=== PATIENT | male | born 1960 | race Hispanic/Latino ===

== ENCOUNTER 2018-10-01 21:48 | Inpatient (IN) | payer SELFPAY ==
[~2018-10-01] VITALS: Ht 170.2 cm; Wt 103.1 kg
[2018-10-01] MEDS ORDERED: ADENOSINE 6 MG/2 ML VIAL IV ONE ×4 (21:50→21:58)
[2018-10-01] MEDS ORDERED: MORPHINE SULFATE INJ 4 MG/ML INJ 1ML ONE (21:57)
[2018-10-01] MEDS ORDERED: ADENOSINE 6MG/2ML 2 ML ONE (21:58)
[2018-10-01] MEDS ORDERED: METOPROLOL TARTRATE INJ 1 MG/ML VIAL ONE (22:01)
[2018-10-01] MEDS ORDERED: METOPROLOL TARTRATE INJ 1 MG/ML VIAL IV ONE (22:02)
[2018-10-01] MEDS ORDERED: MORPHINE SULFATE 2 MG/ML SYR 1ML IV STA (22:04)
[2018-10-01] MEDS ORDERED: AMIODARONE 900MG 500 ML IV ONE ×2 (22:26→23:00)
[2018-10-01] MEDS ORDERED: AMIODARONE HCL 150MG 100 ML ONE (22:26)
[2018-10-01] MEDS ORDERED: AMIODARONE HCL 150 MG/100 ML BAG IV ONE (22:30)
[2018-10-01] MEDS ORDERED: ASPIRIN 81 MG CHEW TAB PO ONE (22:30)
[2018-10-01 22:33] LABS: BASOPHILS # (AUTO) 0.1 (0.0-0.1); BASOPHILS % 0.6 % (0.0-1.0); EOSINOPHILS # (AUTO) 0.4 (0.0-0.4); EOSINOPHILS % 4.3 % (0.0-6.0); HEMATOCRIT 40.5 % (38.2-49.6); HEMOGLOBIN 13.9 g/dL (14.0-18.0); LYMPHOCYTES # (AUTO) 3.3 (1.0-3.2); LYMPHOCYTES % 36.4 % (18.0-39.1); MEAN CORPUSCULAR HEMOGLOBIN 30.2 pg (28-32); MEAN CORPUSCULAR HGB CONC 34.3 g/dL (31-35); MEAN CORPUSCULAR VOLUME 87.9 fL (81-99); MONOCYTES # (AUTO) 0.9 (0.2-0.8); MONOCYTES % 10.1 % (4.4-11.3); NEUTROPHILS # (AUTO) 4.4 (2.1-6.9); NEUTROPHILS % 48.4 % (38.7-80.0); PLATELET COUNT 269 x10e3/uL (140-360); RED BLOOD COUNT 4.61 x10e6/uL (4.3-5.7)
[2018-10-01 22:46] LABS: ALANINE AMINOTRANSFERASE 34 IU/L (0-55); ALBUMIN 3.6 g/dL (3.5-5.0); ALBUMIN/GLOBULIN RATIO 1.2 (0.8-2.0); ALKALINE PHOSPHATASE 100 IU/L (40-150); ANION GAP 18.4 mmol/L (8-16); BLOOD UREA NITROGEN 13 mg/dL (7-26); BUN/CREATININE RATIO 15 (6-25); CALCIUM 8.8 mg/dL (8.4-10.2); CARBON DIOXIDE 16 mmol/L (22-29); CHLORIDE 108 mmol/L (98-107); CREATINE KINASE 202 IU/L (30-200); CREATININE, SERUM 0.87 mg/dL (0.72-1.25); EST GLOMERULAR FILTRATION RATE > 60 ML/MIN (60-); GLUCOSE 193 mg/dL (74-118); POTASSIUM 3.4 mmol/L (3.5-5.1); SODIUM 139 mmol/L (136-145)
[2018-10-01] MEDS ORDERED: SPIRONOLACTONE25 MG PO (22:58)
[2018-10-01] MEDS ORDERED: ATORVASTATIN CA20 MG PO (22:58)
[2018-10-01] MEDS ORDERED: PLAVIX75 MG PO (22:58)
[2018-10-01] MEDS ORDERED: TOPROL XL50 MG PO (22:58)
[2018-10-01] MEDS ORDERED: HEPARIN SOD (PORCINE) 1000 UNIT/ML 30ML ONE (23:10)
[2018-10-01] MEDS ORDERED: IOPAMIDOL 370 MG/ML 200 ML INFUS..BTL INJ ONE (23:11)
[2018-10-01] MEDS ORDERED: HEPARIN SOD/SOD CHLORIDE 2,000 ML ONE (23:11)
[2018-10-01] MEDS ORDERED: SODIUM CHLORIDE 0.9% 1000ML 1,000 ML ONE (23:11)
[2018-10-01] MEDS ORDERED: MIDAZOLAM HCL 2 MG/2 ML VIAL ONE (23:11)
[2018-10-01] MEDS ORDERED: FENTANYL CITRATE/PF 100MCG/2 ML INJ ONE (23:11)
[2018-10-01] MEDS ORDERED: NITROGLYCERIN/D5W 200 MCG/ML 250 ML ONE (23:11)
[2018-10-01] MEDS ORDERED: LIDOCAINE HCL 2% LOCAL 20 ML VIAL ONE (23:12)
[2018-10-01] MEDS ORDERED: EPTIFIBATIDE 75mg 100ML 100 ML ONE (23:46)
[2018-10-01] MEDS ORDERED: EPTIFIBATIDE 20 ML ONE (23:46)
[2018-10-01] MEDS ORDERED: EPTIFIBATIDE 10 ML ONE (23:55)
[2018-10-02] VITALS (14 sets, daily range): BP systolic 111–151; BP diastolic 74–94
[2018-10-02] MEDS: SODIUM CHLORIDE 0.9% 1000ML 1,000 ML IV SCH ×2 (00:15→13:08)
[2018-10-02] MEDS ORDERED: EPTIFIBATIDE 2 MG/1 ML 10ML VIAL IV ONE (00:15)
[2018-10-02] MEDS ORDERED: ACETAMINOPHEN 325 MG TAB PO PRN (00:15)
[2018-10-02] MEDS ORDERED: ZOLPIDEM TARTRATE 5 MG TAB PO PRN (00:15)
[2018-10-02] MEDS ORDERED: HYDROCODONE/APAP 5MG-325MG TAB PO PRN (00:15)
[2018-10-02] MEDS ORDERED: ONDANSETRON HCL INJ 2MG/ML 2ML 2 MG/ML VIAL IV PRN (00:15)
[2018-10-02] MEDS ORDERED: MORPHINE SULFATE INJ 4 MG/ML INJ 1ML IV PRN (00:15)
[2018-10-02] MEDS ORDERED: ASPIRIN 81 MG CHEW TAB PO ONE ×3 (00:15→03:45)
[2018-10-02] MEDS ORDERED: AMIODARONE 900MG 500 ML IV SCH (00:30)
--- NOTE | 2018-10-02 00:38 | NUR ---
Report provided to boris RUTHERFORD, review of procedural findings and medications given. Patient drowsy, easily aroused. maintains airway and room air saturations of 96-98%. No gross issues of pressure, pain, pallor or dysrhythmia. IV site patent with NS 0.9% at 100ml/hr, Amiodarone @ 1mg/min, and integrelin @ 15mg/hr by imed pump. patient hemodynamically stable with hemostasis. right groin dressing CDI w/o s/s of bleeding. patient transferred to [facility] with asssist w/o incident. Overall skin integrity remains intact, except for lower extremities in what appears "diabetic ulcerations and discolor" w/o drainage . transported to 193 ICU on Zolls and oxygen - cgf procedure: PCI of LAD x2 stent, Sheath puller: Luis Eduardo - 6fr perclose proglide Meds Given Intra-Procedure Sedatives Versed - 2 mg Fentanyl - 50 mcg Anticoagulants Heparin - 10,000 Units Integrelin Bolus - (22.6mg)11.3 ml x2 5 minutes apart Gtt - (15mg/hr )20ml/hr for weight > 121 kg Fluids Input - 1400ml Output - none Contrast Isovue - 110ml Other Meds Brilinta - 180mg
[2018-10-02] MEDS ORDERED: TICAGRELOR 90 MG TABLET ONE (00:53)
--- NOTE | 2018-10-02 01:05 | Operative Report ---
DATE OF PROCEDURE: October 01, 2018 CARDIAC CHAINSTITCH FELLED SEAM OPERATOR PROCEDURE INDICATIONS: ST elevation myocardial infarction, ventricular tachycardia. PROCEDURES PERFORMED 1. Left heart catheterization, selective coronary angiography. 2. Primary percutaneous coronary intervention to the mid and distal left anterior descending artery. 3. Deployment of right groin Perclose closure device. COMPLICATIONS: None. RECOMMENDATIONS: Diagnostic coronary angiogram revealed 50% distal left main stenosis, 50% ostial left anterior descending stenosis, and stent in the proximal left anterior descending artery had diffuse 50% in-stent restenosis. Mid and distal left anterior descending artery had 99% stenosis with CARLA-1 flow. Circumflex, moderate 30-50% stenosis with dominant vessel filling the left posterior descending artery. Right coronary artery was non-dominant, was occluded in its mid portion. A decision was made to intervene on the left anterior descending artery. The patient received 10,000 units of intravenous heparin along with intravenous Integrilin, oral Brilinta, and aspirin for anticoagulation. The left main was cannulated using an XB 3.56-Turkmen guiding catheter. A short Runthrough wire was advanced across the lesion, pre-dilatation with a 2-mm balloon with hinduism of flow, 2 overlapping 2.5 x 38 and 3.0 x 18 mm drug-eluting Resolute [place] stents were deployed to 14 and 16 atmospheres respectively with excellent end result. Less than 10% re-stenosis, CARLA-3 flow, and no complications. Right groin repaired using Perclose. Patient transferred to ICU in stable condition. Job#: [id number] KENA
--- NOTE | 2018-10-02 01:14 | History and Physical ---
DATE OF VISIT: October 01, 2018 INDICATION: Tachycardia. HISTORY OF PRESENT ILLNESS: Mr. Jimenez is a 58-year-old gentleman with remote history of myocardial infarction and stent placement, on medications including metoprolol, Lipitor and clopidogrel; nondiabetic, nonsmoker, comes in with palpitations, was found to be in sustained ventricular tachycardia; was cardioverted to sinus rhythm; however, his electrocardiogram showed marked ST elevation in his anterior leads. A Code STEMI was called. PAST MEDICAL HISTORY: As listed above. SOCIAL HISTORY: The patient does not smoke. He drinks on occasional basis. FAMILY HISTORY: Noncontributory. ALLERGIES: NO KNOWN DRUG ALLERGIES. REVIEW OF SYSTEMS: Negative except as dictated in the history of present illness. PHYSICAL EXAMINATION VITAL SIGNS: Afebrile, heart rate is 78 and blood pressure is 108/70. CARDIOVASCULAR: Regular rhythm. S4 gallop. Systolic murmur. LUNGS: Clear to auscultation bilaterally. ABDOMEN: Distended. Bowel sounds are adequate. EXTREMITIES: Edema 2+. IMAGING DATA: Electrocardiogram shows anterior ST elevation with sinus rhythm. LABS: Labs are pending. ASSESSMENT: Acute anterior ST elevation myocardial infarction, complicated by sustained ventricular tachycardia. RECOMMENDATIONS: Intravenous amiodarone for ventricular tachycardia, urgent coronary intervention, and anticoagulation with aspirin and heparin which have been administered to the patient. Risks, benefits, and alternatives of this procedure were discussed with the family and they are agreeable for the same. Two-physician consent was obtained. Patient is being taken to the senior laboratory technician for emergency coronary angiography. Job#: [id number] KENA
--- NOTE | 2018-10-02 03:00 | NUR ---
AT 0135 IN PATIENTs ROOM FINISHING THE ADMISSION ASSESSMENT WHEN I NOTICED PATIENTs GOWN HAD FRESH BRIGHT RED BLOOD. CHECKED RIGHT FEMORAL SITE, BLEEDING NOTED. I PLACED SEVERAL 4X4 GAUZE TO SITE AND APPLIED FIRM PRESSURE. AT 0156 I THEN CALLED FOR BETH GURROLA RN TO ASSIST ME IN HER HOLDING PRESSURE TO SITE FOR ANOTHER 20MIN OR UNTIL BLEEDING STOPPED AND IF SHE COULD PLACED A COMPRESSION DRESSING TO SITE WHEN BLEEDING STOPPED SO I COULD TAKE CARE OF ANOTHER MATTER. BETH RUTHERFORD DID SO AND BLEEDING STOPPED AROUND 0220 AND SHE PLACED THE COMPRESSION DRESSING TO SITE. AND AT THIS TIME NO BLEEDING NOTED TO RIGHT FEMORAL SITE.
--- NOTE | 2018-10-02 05:10 | NUR ---
ASSESSED RIGHT FEMORAL SITE. NO BLEEDING AND NO HEMATOMA IS NOTED. REMOVED COMPRESSION DRESSING AND CLEAN SITE WITH NS CAREFULLY, PATTED DRY SOFTLY THEN APPLIED DRY DRESSING.
[2018-10-02] MEDS ORDERED: METOPROLOL SUCCINATE 50 MG TAB XL PO SCH (09:00)
[2018-10-02 09:59] LABS: CREATINE KINASE MB 7.9 ng/mL (0-5.0)
--- NOTE | 2018-10-02 10:11 | NUR ---
ROBBY Maurer for Dr Hoff to bedside.
[2018-10-02] MEDS: LISINOPRIL 10 MG TAB PO SCH (11:06)
[2018-10-02] MEDS: CLOPIDOGREL BISULFATE 75 MG TAB PO SCH (11:06)
[2018-10-02] MEDS: SPIRONOLACTONE 25 MG TAB PO SCH (11:06)
[2018-10-02] MEDS: ASPIRIN 325 MG TAB PO SCH (11:06)
--- NOTE | 2018-10-02 12:05 | Progress Note ---
DATE: CARDIOLOGY PROGRESS NOTE SUBJECTIVE: Patient is without any complaints this morning. He states that he feels well. Denies any palpitation, shortness of breath, or chest pain. OBJECTIVE VITAL SIGNS: Temperature not recorded, pulse 93, respiratory rate 16, blood pressure 104/76, oxygen saturation 100% on 2 liters nasal cannula. GENERAL: Alert and oriented x3, resting comfortably in bed. Does not appear to be in any acute distress. NECK: Supple. No JVD noted. CARDIOVASCULAR: Regular rate and rhythm. Diastolic murmur present 08/21. No S4 or no S3 noted. LUNGS: Diminished breath sounds posterior lower lobes. Otherwise, clear to auscultation. ABDOMEN: Rounded, soft, nontender. EXTREMITIES: Trace edema bilaterally with healing lesions noted. CARDIOVASCULAR MEDICATIONS 1. Amiodarone IV drip. 2. Metoprolol 200 mg p.o. daily. 3. Plavix 75 p.o. daily. 4. Atorvastatin 40 p.o. h.s. 5. Lisinopril 10 p.o. daily. 6. Aspirin 325 p.o. daily. LABS: WBC yesterday 9.04, hemoglobin 13.9, hematocrit 40.5, platelets 269. Sodium 139, potassium 3.4, BUN 13, creatinine 0.87. Troponin 0.615. CK-MB 7.90. ASSESSMENT 1. Acute anterior ST elevation myocardial infarction complicated by ventricular tachycardia last night. 2. Hypertension. RECOMMENDATIONS: Transition from amiodarone IV drip to oral p.o. amiodarone. Monitor access site for any signs of bleeding. Maintain on telemetry. Maintain in hospital for at least the next 24 hours. If no change in condition, consider discharge tomorrow. Continue the above-listed cardiac medications. We will continue to follow this patient very closely. Dictated by: Libertad Lee NP Job#: [id number] ANG
--- NOTE | 2018-10-02 14:39 | NUR ---
Patient ambulated in room, gown and linen change provided.
[2018-10-02] MEDS ORDERED: ADENOSINE 6 MG/2 ML VIAL ONE (15:18)
[2018-10-02] MEDS: AMIODARONE HCL 200 MG TAB PO SCH (17:33)
--- NOTE | 2018-10-02 18:10 | NUR ---
Spoke with Dr Hoff; will round on patient and decide between Med Surg c tele and discharging the patient home. Amio gtt off. Patient teaching in Filipino and Divehi provided on the new medication.
[2018-10-02 18:18] LABS: CREATINE KINASE MB 5.2 ng/mL (0-5.0)
[2018-10-02] MEDS ORDERED: ATORVASTATIN 20 MG TAB PO SCH (21:00)
[2018-10-03] VITALS (14 sets, daily range): BP systolic 116–167; BP diastolic 0–98
--- NOTE | 2018-10-03 03:19 | NUR ---
SOME VITAL SIGNS COMPUTER CHARTED MANUALLY PLACED. MORE VITAL SIGNS FOR 10/02/18 7P-7A SHIFT WILL BE IN PATIENTs CHART UNDER VITAL SIGN TAB
[2018-10-03] MEDS: SODIUM CHLORIDE 0.9% 1000ML 1,000 ML IV SCH (03:30)
[2018-10-03 05:03] LABS: BASOPHILS % 0.4 % (0.0-1.0); EOSINOPHILS # (AUTO) 0.3 (0.0-0.4); EOSINOPHILS % 4.1 % (0.0-6.0); HEMATOCRIT 36.7 % (38.2-49.6); HEMOGLOBIN 12.5 g/dL (14.0-18.0); LYMPHOCYTES # (AUTO) 1.5 (1.0-3.2); LYMPHOCYTES % 18.5 % (18.0-39.1); MEAN CORPUSCULAR HEMOGLOBIN 30.3 pg (28-32); MEAN CORPUSCULAR HGB CONC 34.1 g/dL (31-35); MEAN CORPUSCULAR VOLUME 89.1 fL (81-99); MONOCYTES # (AUTO) 0.6 (0.2-0.8); MONOCYTES % 7.1 % (4.4-11.3); NEUTROPHILS # (AUTO) 5.8 (2.1-6.9); NEUTROPHILS % 69.5 % (38.7-80.0); PLATELET COUNT 221 x10e3/uL (140-360); RED BLOOD COUNT 4.12 x10e6/uL (4.3-5.7); RED CELL DISTRIBUTION WIDTH 14.4 % (11.7-14.4)
[2018-10-03 05:32] LABS: ANION GAP 12.1 mmol/L (8-16); BLOOD UREA NITROGEN 9 mg/dL (7-26); BUN/CREATININE RATIO 13 (6-25); CALCIUM 8.6 mg/dL (8.4-10.2); CARBON DIOXIDE 21 mmol/L (22-29); CHLORIDE 109 mmol/L (98-107); CHOL/HDL RATIO 2.5 (3.9-4.7); CHOLESTEROL 84 MD/DL (0-199); EST GLOMERULAR FILTRATION RATE > 60 ML/MIN (60-); GLUCOSE 112 mg/dL (74-118); HDL CHOLESTEROL 33 MG/DL (40-60); LDL CHOLESTEROL 33 MG/DL (60-130); SODIUM 138 mmol/L (136-145); TRIGLYCERIDES 88 MG/DL (0-149)
[2018-10-03 05:55] LABS: POTASSIUM 4.1 mmol/L (3.5-5.1)
[2018-10-03] MEDS: SPIRONOLACTONE 25 MG TAB PO SCH (09:32)
[2018-10-03] MEDS: AMIODARONE HCL 200 MG TAB PO SCH (09:33)
[2018-10-03] MEDS: ASPIRIN 325 MG TAB PO SCH (09:33)
[2018-10-03] MEDS: CLOPIDOGREL BISULFATE 75 MG TAB PO SCH (09:34)
[2018-10-03] MEDS: LISINOPRIL 10 MG TAB PO SCH (09:35)
--- NOTE | 2018-10-03 10:30 | Progress Note ---
DATE: October 03, 2018 CARDIOLOGY PROGRESS NOTE SUBJECTIVE: The patient denies chest pain or shortness of breath. He did report an episode of dizziness earlier this morning. OBJECTIVE VITAL SIGNS: Temperature 98.7 degrees, pulse 64, respiratory rate 14, blood pressure 147/70, oxygen saturation 99% on room air. GENERAL: Awake, alert, in no acute distress. LUNGS: Clear to auscultation bilaterally. No wheezes or crackles. CARDIOVASCULAR: Normal rate, regular rhythm. Diastolic murmur 1/6. Normal S1 and S2. ABDOMEN: Soft. Nontender. EXTREMITIES: No edema. Rash noted. CARDIAC MEDICATIONS 1. Lisinopril 10 mg p.o. daily. 2. Plavix 75 mg p.o. daily. 3. Amiodarone 200 mg p.o. b.i.d. 4. Aspirin 325 mg p.o. daily. 5. Spironolactone 50 mg p.o. daily. 6. Atorvastatin 40 mg p.o. nightly. 7. Carvedilol 12.5 mg p.o. b.i.d. LABS: WBC 8.34, hemoglobin 12.5, hematocrit 36.7, platelets 221. Sodium 138, potassium 4.1, chloride 109, CO2 21, BUN 9, creatinine 0.7. LDL 33, HDL 33, cholesterol 84, triglycerides 88. TELEMETRY: Normal sinus rhythm. IMPRESSION 1. Acute anterior ST-elevation myocardial infarction complicated by ventricular tachycardia. 2. Acute systolic heart failure. 3. Hypertension. RECOMMENDATIONS: Continue with dual antiplatelet therapy. The patient was strongly counseled on the importance of adherence to this medication given his very recent stent as well as the risk of in-stent thrombosis. He expressed understanding. Continue lisinopril. The patient was started on carvedilol instead of metoprolol given cost difference. Given the patient's LDL is at goal, the patient will be discharged on simvastatin instead of atorvastatin. Continue optimal medical therapy. He was instructed on the importance of close followup with cardiology. Will have the patient ambulate this morning. If he feels well and with stable blood pressure, possible discharge home later today. Job#: [id number]
--- NOTE | 2018-10-03 10:58 | NUR ---
GAVE PACKET OF INFORMATION WITH COMMUNITY RESOURCES FOR ASSISTANCE WITH LOW TO NO INCOME TO PATIENT. RESOURCES THAT PATIENT MAY BE ABLE TO FOLLOW UP UPON DISCHARGE. PT EDUCATED ON EACH RESOURCE AND UNDERSTANDING HOW TO FOLLOW UP TO SEE IF QUALIFIED FOR EACH RESOURCE.
--- NOTE | 2018-10-03 14:18 | NUR ---
DR. FUENTES CALLED AND NOTIFIED OF NEW CONSULT ON THIS PATIENT FOR POSSIBLE SCABIES
--- NOTE | 2018-10-03 15:37 | NUR ---
WOUND CARE CONSULTATION - INITIAL EVALUATION Patient admitted to ER for acute chest pain and had s/p emergent coronary angiography. HX: MD, Stent Placement, Rash of unknown etiology for > 2 years. Wound Care Consulted for evaluation of rash to BLE and BUE. LABS: WBC8.34 HGB12.5 HCT36.7 NEUT%69.5 FGE110 ALB3.6 PATIENT VISIT: - Israeli speaking pleasant 58 year old male. - Patient Presents with Dry Scaly Skin Indurated Lesions to BLE & BUE at Various Healing Stages. - States they never go away, the lesions come and go - Started 2 years ago as tiny red spots and eventually blistered with severe itching. States then the area appears to migrate in a line to other areas. States to have tried many different creams and ointment but nothing works. Has had previously seen a rotary drum dyer and used a cream ( unable to recall name) that worked for a few months then the itching and lesions began to erupt again. The cream did not work the same the when he tried to use it again. Patient states like there are little animals crawling under his skin. - Dr. Hoff contacted and discussed findings. Covering physician will assess and decide on treatment plan. RECOMMENDATION: Send Slide of with Crustations to lab to Rule Out Scabies, Culture New Blister if possible and send for C&S , Aerobic Culture, Anaerobic Culture, Fungal Culture. If All Tests and Cultures negative. consider using Topical Triamcinolone Cream BID. Thank you for Consulting with Wound Care. Addendum: 10/03/18 at 1549 by Eddie Sullivan RN Amended: Links added.
--- NOTE | 2018-10-03 16:05 | NUR ---
Dr. Vieira here to see patient. Says patient does not have scabies and patient instructed to see books binder via [facility] or with patient's primary physician. Patient and verbally voiced understanding these instructions given in Jordanian by myself.
[2018-10-03] MEDS ORDERED: ASPIR-TRIN325 MG (16:14)
[2018-10-03] MEDS ORDERED: AMIODARONE HCL200 MG (16:16)
--- NOTE | 2018-10-03 16:45 | NUR ---
Patient discharged via Wheelchair and taken to front of lobby to awaiting car driven by . Discharge written instructions given to patient and copy to chart. Respirations are even and unlabored. Denies any pain or discomfort. V/S are stable
[2018-10-03] MEDS ORDERED: CARVEDILOL 12.5 MG TAB PO SCH (17:00)
--- NOTE | 2018-10-04 10:08 | Consultation ---
DATE OF CONSULTATION: 10/03/2018 REASON FOR CONSULTATION: Skin rash, concerned about scabies versus other. HISTORY OF PRESENT ILLNESS: This patient who is a 58-year-old male, who was having this skin rash for more than 2 years. He has seen a doctor long time ago, more than a year ago. He gave him local steroid cream. The patient comes to the hospital because of chest pain. He was admitted, he did rule out for myocardial infarction. He was treated and doing well, but I was asked to see him because of skin rash, since we do not have a Dermatology on the case. The patient is complaining of itching. PAST MEDICAL HISTORY: Obesity and coronary artery disease. PAST SURGICAL HISTORY: Cardiac cath. ALLERGIES: NO KNOWN ALLERGIES. SOCIAL HISTORY: No smoking, drug abuse, or alcohol abuse. PHYSICAL EXAMINATION: GENERAL: He is currently alert and oriented x3, seemed to be in no acute distress. VITAL SIGNS: Stable. Currently afebrile. HEENT: . NECK: Supple. CHEST: Clear. HEART: S1, S2 normal. ABDOMEN: Soft. SKIN: He has diffuse papular rash. There is no tracking. I do not see anything in between the fingers. The rash is dry, maculopapular, scattered. IMPRESSION: Dermatitis. PLAN: Give him prednisone 5 mg p.o. daily, to be discharged home. Follow up with outpatient Dermatology. If the patient has no funds, can follow up with Dermatology at or he can find a private manager environmental affairs. The patient to use local hydrocortisone and calamine lotion. Thank you for asking me to see this patient. MD ABIMAEL Schuster/LILIA /[id number]
== END 2018-10-03 16:45 | disposition home or self-care (01) | DRG 246 ==
LOC: ER 21:48 → ERHOLD 10-02 00:53 → ICU 10-02 00:57
PROVIDERS: ADMIT Internal Medicine Interventional Cardiology; ATTEND Internal Medicine Interventional Cardiology
PROC: 027035Z Dilation of Coronary Artery, One Artery with Two Drug-eluting Intraluminal Devices, Percutaneous Approach (ICD-10-PCS; principal; 2018-10-01)
PROC: 4A023N7 Measurement of Cardiac Sampling and Pressure, Left Heart, Percutaneous Approach (ICD-10-PCS; 2018-10-01)
PROC: B2111ZZ Fluoroscopy of Multiple Coronary Arteries using Low Osmolar Contrast (ICD-10-PCS; 2018-10-01)
DX: I21.09 ST elevation (STEMI) myocardial infarction involving other coronary artery of anterior wall (principal); I50.21 Acute systolic (congestive) heart failure; I47.1 Supraventricular tachycardia; L30.9 Dermatitis, unspecified; E66.9 Obesity, unspecified; I25.2 Old myocardial infarction; Z95.5 Presence of coronary angioplasty implant and graft; I11.0 Hypertensive heart disease with heart failure; Z68.35 Body mass index [BMI] 35.0-35.9, adult
CPT/HCPCS: 36415; 36430; 80048; 80053; 80061; 82550; 82553; 82948; 84484; 85025; 92928; 93005; 93306; 93454; 99284; C1725; C1874; J0153; J1327; J1644; J2001; J2250; J2270; J2405; J7030; Q9967

== ENCOUNTER 2019-06-20 21:50 | Observation (INO) | payer SELFPAY ==
[~2019-06-20] VITALS: Ht 170.2 cm; Wt 93.1 kg
[~2019-06-20 21:50] MED LIST: AMIODARONE HCL200 MG; ASPIR-TRIN325 MG; ATORVASTATIN CA20 MG PO; PLAVIX75 MG PO; SPIRONOLACTONE25 MG PO; TOPROL XL50 MG PO
--- NOTE | 2019-06-20 23:00 | Diagnostic Imaging Report ---
EXAMINATION: CXR 2 VIEW - HOPD INDICATION: Chest pain. COMPARISON: None FINDINGS: TUBES and LINES: None. LUNGS: Lungs are well inflated. There is no evidence of pneumonia or pulmonary edema. PLEURA: No pleural effusion or pneumothorax. HEART AND MEDIASTINUM: The cardiomediastinal silhouette is unremarkable. There are atherosclerotic calcifications within the aorta. Tortuous thoracic aorta. BONES AND SOFT TISSUES: No acute osseous abnormality. UPPER ABDOMEN: No free air under the diaphragm. IMPRESSION: No acute radiographic abnormality. Signed by: Dr. Jose Angel Clemons MD on 06/20/2019 10:57 PM
[2019-06-21] VITALS (10 sets, daily range): BP systolic 113–155; BP diastolic 72–99
[2019-06-21] MEDS ORDERED: ASPIRIN 81 MG CHEW TAB PO ONE (00:15)
[2019-06-21] MEDS ORDERED: NITROGLYCERIN 0.4 MG SUBL SL PRN (00:15)
[2019-06-21] MEDS ORDERED: SODIUM CHLORIDE FLUSH 10 ML SYR INJ PRN (00:15)
--- OUTSIDE RECORDS SUMMARY | 2019-06-21 00:29 | XMS REPORT ---
[facility] Address Unknown Phone Unavailable Care Team Providers Care Scaffolder Name Role Phone Shamar BELLA Unavailable Unavailable Problems This patient has no known problems. Allergies, Adverse Reactions, Alerts This patient has no known allergies or adverse reactions. Medications This patient has no known medications. Results Test Description Test Time Test Comments Text Results Atomic Results Result Comments CXR 2 VIEW - HOPD 2019-06-20 22:55:00 [place] [address] Patient Name: BENNIE FAIRBANKS MR #: [id number] : 1960 Age/Sex: 59/M Req #: [id number] Adm Physician: Ordered by: SELENE BELLA MD Report #: [id number] Location: [facility] Room/Bed: Procedure: [id number] HOPD/CXR 2 VIEW - HOPD Exam Date: 06/20/19 Exam Time: 2240 REPORT STATUS: Signed EXAMINATION: CXR 2 VIEW - HOPD INDICATION: Chest pain. COMPARISON: None FINDINGS: TUBES and LINES: None. LUNGS: Lungs are well inflated. There is no evidence of pneumonia or pulmonary edema. PLEURA: No pleural effusion or pneumothorax. HEART AND MEDIASTINUM: The cardiomediastinal silhouette is unremarkable. There are atherosclerotic calcifications within the aorta. Tortuous thoracic aorta. BONES AND SOFT TISSUES: No acute osseous abnormality. UPPER ABDOMEN: No free air under the diaphragm. IMPRESSION: No acute radiographic abnormality. Signed by: Dr. Riki Ashton MD on 06/20/2019 10:57 PM Dictated By: RIKI ASHTON MD 58 Transcribed By: SYD on 06/20/192256 COPY TO: SELENE BELLA MD
--- NOTE | 2019-06-21 01:00 | NUR ---
PT RESTING, FAMILY AT BEDSIDE. NO CHANGES NOTED TO CARDIAC MONITORING SR @ 70BPM
--- NOTE | 2019-06-21 02:33 | NUR ---
REPORT GIVEN TO EMS PT STABLE AT TIME OF TRANSFER.
[2019-06-21] MEDS ORDERED: LISINOPRIL10 MG PO (04:01)
[2019-06-21] MEDS ORDERED: CARVEDILOL12.5 MG PO (04:01)
[2019-06-21] MEDS ORDERED: ASPIRIN CHEW81 MG PO (04:01)
--- NOTE | 2019-06-21 06:58 | NUR ---
Received patient lying in bed with eyes open. Family members at bedside. Respiration even and unlabored without SOB. Call light in reach.
--- NOTE | 2019-06-21 07:10 | NUR ---
Report given to day nurse. patient is resting comfortably in bed. bed is in lowest position and call ibarra is within reach.
[2019-06-21 08:47] LABS: CREATINE KINASE 176 IU/L (30-200)
[2019-06-21] MEDS: ASPIRIN 325 MG TAB EC PO SCH (08:49)
[2019-06-21] MEDS: AMIODARONE HCL 200 MG TAB PO SCH (08:49)
[2019-06-21] MEDS: CARVEDILOL 12.5 MG TAB PO SCH ×2 (08:51→16:12)
[2019-06-21] MEDS: LISINOPRIL 10 MG TAB PO SCH (08:52)
[2019-06-21] MEDS: CLOPIDOGREL BISULFATE 75 MG TAB PO SCH (08:52)
--- NOTE | 2019-06-21 09:13 | NUR ---
Abdi Paerdes Dr. for consultation.
--- NOTE | 2019-06-21 14:20 | NUR ---
Spoke with Dr. Tyson Duran and explained about having an outpatient cardiac stress test instead. states " No, because this patient has a history of CAD and came in with chest pain, if 2nd troponin is negative we will do in-patient stress test tomorrow.
[2019-06-21 16:37] LABS: CREATINE KINASE 117 IU/L (30-200)
--- NOTE | 2019-06-21 19:07 | NUR ---
Report given to defect cutter. Respiration even and unlabored without SOB. Call light in reach.
[2019-06-21] MEDS ORDERED: ATORVASTATIN 20 MG TAB PO SCH (21:00)
[2019-06-22 00:03] LABS: CREATINE KINASE MB 2.2 ng/mL (0-5.0)
--- NOTE | 2019-06-22 00:34 | Consultation ---
DATE OF CONSULTATION: 06/21/2019 Cardiology Consult Note REASON FOR CONSULT: Chest pain. CHIEF COMPLAINT: Chest pain. HISTORY OF PRESENT ILLNESS: The patient is a 59-year-old man with known CAD, status post SC x2 in the past, most recently in September, where he underwent PCI x2. He is presenting with episode of chest discomfort, substernal, felt like a small pressure in his chest resulted in him feeling very anxious and fearful per the patient, had one episode of vomiting. This was similar to his previous MIs in some aspects, so he was nervous and came to the hospital. Denies any shortness of breath, orthopnea, PND, or syncope. REVIEW OF SYSTEMS: As per HPI, otherwise negative. PAST MEDICAL HISTORY: 1. Hypertension. 2. Hyperlipidemia. 3. Coronary artery disease. 4. Remote history of smoking. FAMILY HISTORY: Noncontributory. SOCIAL HISTORY: He does not smoke, drink, or abuse drugs. OUTPATIENT MEDICATIONS: Reviewed. Please see MAR. ALLERGIES: NO KNOWN DRUG ALLERGIES. OBJECTIVE: VITAL SIGNS: Temperature afebrile, pulse 65, respiratory rate 16, blood pressure 117/78, and saturating 96% on room air. GENERAL: 59-year-old man in no acute distress. CARDIOVASCULAR: Regular rate and rhythm. No murmurs, rubs, or gallops. LUNGS: Clear to auscultation bilaterally. ABDOMEN: Soft, nontender, and nondistended. NEURO AND PSYCH: Alert and oriented to person, place, and time. Normal affect. INPATIENT MEDICATIONS: Reviewed. LABORATORY DATA: Reviewed. Troponins negative x2. IMAGING DATA: Reviewed. Chest x-ray shows no acute abnormalities. TELEMETRY DATA: Reviewed showed normal sinus rhythm with some PVCs. ASSESSMENT: 1. Chest pain, atypical, but similar to his previous myocardial infarction. 2. Coronary artery disease, status post multiple PCIs. 3. Hypertension. 4. Hyperlipidemia. PLAN: Rule out for acute SC with serial troponins. If troponins remain negative, plan for stress test tomorrow. Thank you for this consult. We will continue to follow. MD CANDY Valdes/LILIA /[id number]
[2019-06-22 04:45] VITALS: BP 124/76
[2019-06-22 06:00] LABS: ANION GAP 9.6 mmol/L (8-16); BLOOD UREA NITROGEN 15 mg/dL (7-26); BUN/CREATININE RATIO 20 (6-25); CALCIUM 9.1 mg/dL (8.4-10.2); CARBON DIOXIDE 26 mmol/L (22-29); CHLORIDE 107 mmol/L (98-107); CREATININE, SERUM 0.74 mg/dL (0.72-1.25); EST GLOMERULAR FILTRATION RATE > 60 ML/MIN (60-); GLUCOSE 102 mg/dL (74-118); MAGNESIUM 1.8 MG/DL (1.3-2.1); POTASSIUM 3.6 mmol/L (3.5-5.1); SODIUM 139 mmol/L (136-145)
--- NOTE | 2019-06-22 06:52 | NUR ---
Received patient lying in bed with eyes open, at bedside. Respiration even and unlabored without SOB. Call light in reach. Patient is NPO at this time.
[2019-06-22 08:00] VITALS: BP 131/82
[2019-06-22] MEDS: ASPIRIN 325 MG TAB EC PO SCH (09:00)
[2019-06-22] MEDS: CARVEDILOL 12.5 MG TAB PO SCH ×2 (09:00→18:35)
[2019-06-22] MEDS: CLOPIDOGREL BISULFATE 75 MG TAB PO SCH (09:00)
[2019-06-22] MEDS: AMIODARONE HCL 200 MG TAB PO SCH (09:00)
[2019-06-22] MEDS: LISINOPRIL 10 MG TAB PO SCH (09:00)
[2019-06-22] MEDS ORDERED: REGADENOSON 0.4 MG/5 ML SYR IV ONE (09:35)
[2019-06-22 09:39] VITALS: BP 131/82
--- NOTE | 2019-06-22 09:40 | NUR ---
Patient is transported to nuclear medicine unit at this time.
[2019-06-22 16:39] VITALS: BP 154/90
[2019-06-22] MEDS ORDERED: CLOPIDOGREL75 MG PO (18:09)
--- NOTE | 2019-06-22 18:28 | NUR ---
PIV to left arm discontinued, catheter intact, no bleeding noted.
--- NOTE | 2019-06-22 18:55 | NUR ---
Patient is transported via wheelchair to private vehicle. All personal belongings are with spouse and family members.
--- NOTE | 2019-06-22 21:33 | Progress Note ---
DATE: 06/22/2019 Cardiology Progress Note SUBJECTIVE: No major events overnight. Had a stress test today. OBJECTIVE: VITAL SIGNS: Temperature afebrile, pulse 68, respiratory rate 22, blood pressure 131/82, saturating 98% on room air. GENERAL: Middle-aged man, in no acute distress. CARDIOVASCULAR: Regular rate and rhythm. No murmurs, rubs, or gallops. LUNGS: Clear to auscultation bilaterally. ABDOMEN: Soft, nontender, nondistended. NEURO AND PSYCH: Alert and oriented to person, place, and time. Normal affect. INPATIENT MEDICATIONS: Reviewed. LABORATORY DATA: Reviewed. Troponins negative x3. TELEMETRY DATA: Reviewed, shows normal sinus rhythm. IMAGING DATA: Reviewed. Stress test shows large anterior and apical scar, EF of 30%, however, no reversible ischemia noted. ASSESSMENT: 1. Chest pain, atypical. 2. Coronary artery disease, status post myocardial infarction and multiple stents. 3. Hypertension. 4. Hyperlipidemia. PLAN: Stress test shows large anterior scar and no reversible ischemia. Troponins negative x3. The patient okay to be discharged from cardiovascular standpoint. Follow up with Dr. Degroot in clinic. He will need a defibrillator placement if his EF does not improve after optimal medical therapy. This can be done as outpatient basis. Thank you for this consult. We will continue to follow. MD CANDY Valdes/LILIA /[id number]
== END 2019-06-22 18:55 | disposition home or self-care (01) ==
LOC: FSED 21:50 → ERHOLD 06-21 00:05 → IMCU 06-21 03:19
PROVIDERS: ADMIT Internal Medicine; ATTEND Internal Medicine
DX: R07.89 Other chest pain (principal); I10 Essential (primary) hypertension; E78.5 Hyperlipidemia, unspecified; I25.10 Atherosclerotic heart disease of native coronary artery without angina pectoris; Z87.891 Personal history of nicotine dependence; I25.2 Old myocardial infarction
CPT/HCPCS: 36415 ×2; 71046; 78452; 80048; 80053; 81003; 82550; 82553 ×2; 83735; 84484 ×2; 85025; 85610; 93005; 93017; 99284; A9502; G0378 ×2; J2785